=== PATIENT | male | born 1980 | race Caucasian/White ===

== ENCOUNTER 2021-05-17 10:18 | Emergency (ER) | payer OTHER ==
[2021-05-17] MEDS ORDERED: NORCO 5-325 TA1 EACH PO (11:08)
[2021-05-17] MEDS ORDERED: CLEOCIN300 MG PO (11:08)
== END 2021-05-17 11:52 | disposition home or self-care (01) ==
LOC: FER 10:18
DX: S60.551A Superficial foreign body of right hand, initial encounter (principal); Z23 Encounter for immunization; F17.210 Nicotine dependence, cigarettes, uncomplicated; W45.8XXA Other foreign body or object entering through skin, initial encounter; Y92.89 Other specified places as the place of occurrence of the external cause; Y99.0 Civilian activity done for income or pay
CPT/HCPCS: 90471; 90715

== ENCOUNTER 2022-08-08 20:01 | Emergency (ER) | payer OTHER ==
[~2022-08-08 20:01] MED LIST: CLEOCIN300 MG PO; NORCO 5-325 TA1 EACH PO
[2022-08-08 20:19] LABS: BASOPHIL 0.3 % (0-2); EOSINOPHIL 0 % (0-5); HCT 43.7 % (42.0-52.0); HGB 14.6 g/dl (13.2-18.0); LYMPHOCYTE 19.8 % (15-48); MCH 31.5 pg (25.0-31.0); MCHC 33.4 g/dL (32.0-36.0); MCV 94.4 fL (78.0-100.0); MONOCYTE 6.9 % (0-12); MPV 9.2 fL (6.0-9.5); NEUTROPHIL 72.9 % (41-80); NRBC 0; PLT 190 K/uL (150-400); RBC 4.63 M/uL (4.70-6.00); RDW 12.1 % (11.5-14.0); WBC 7.9 K/uL (4.0-10.5)
[2022-08-08 20:26] LABS: INR 0.99 (0.9-1.2); PROTHROMBIN TIME 12.8 SECONDS (11.9-13.9); PTT 28.6 SECONDS (24.9-34.6)
[2022-08-08 20:36] LABS: ALBUMIN 3.8 g/dL (3.4-5.0); BILIRUBIN - TOTAL 0.3 mg/dL (0.2-1.0); BUN/CREAT RATIO (CALC) 8.2 RATIO; CREATININE 0.85 mg/dL (0.67-1.17); GLOBULIN (CALCULATION) 3.1 g/dL; POTASSIUM 3.7 mmol/L (3.5-5.1); TOTAL PROTEIN 6.9 g/dL (6.4-8.2)
== END 2022-08-08 21:41 | disposition home or self-care (01) ==
LOC: FER 20:01
PROVIDERS: Emergency Medicine
DX: I20.8 Other forms of angina pectoris (principal); K21.9 Gastro-esophageal reflux disease without esophagitis; Z28.310 Unvaccinated for COVID-19; Z88.0 Allergy status to penicillin; Z88.1 Allergy status to other antibiotic agents; Z79.899 Other long term (current) drug therapy
CPT/HCPCS: 36415; 71045; 80053; 84484; 85025; 85610; 85730; 93005; C9113; Q0162